=== PATIENT | female | born 1955 | race Caucasian/White ===

== ENCOUNTER 2021-10-01 11:34 | Emergency (ER) | payer OTHER ==
[~2021-10-01] VITALS: Ht 160 cm; Wt 76.2 kg
[~2021-10-01 11:34] MED LIST: MILLIPRED5 MG; PROVENTIL0.5 ML/2.5; SYMBICORT 16010.2 GM; WAL-TUSSIN DM118 M1
[2021-10-01] MEDS ORDERED: SINGULAIR10 MG PO (11:58)
[2021-10-01] MEDS ORDERED: SKELAGESIC PO (17:01)
[2021-10-01] MEDS ORDERED: PYRIDIUM DS200 MG PO (17:01)
== END 2021-10-01 19:27 ==
LOC: ER 11:34
DX: N39.0 Urinary tract infection, site not specified (principal); R10.32 Left lower quadrant pain

== ENCOUNTER 2024-12-28 08:26 | Outpatient (CLI) | payer OTHER ==
[~2024-12-28 08:26] MED LIST changes: +PYRIDIUM DS200 MG PO; +SINGULAIR10 MG PO; +SKELAGESIC PO
== END 2024-12-28 08:30 | disposition home or self-care (01) ==
LOC: RAD 08:26
PROVIDERS: ATTEND Surgery
DX: R49.0 Dysphonia (principal); R05.9 Cough, unspecified; R09.82 Postnasal drip; J45.909 Unspecified asthma, uncomplicated; E11.9 Type 2 diabetes mellitus without complications; E03.9 Hypothyroidism, unspecified